=== PATIENT | female | born 1965 | race Caucasian/White ===

== ENCOUNTER 2016-09-29 19:21 | Emergency (ER) | payer OTHER ==
[~2016-09-29] VITALS: Ht 165.1 cm; Wt 87.6 kg
[~2016-09-29 19:21] MED LIST: Ecotrin PO; Norvasc PO; PRILOSEC20 MG PO; REGLAN10 MG PO
[2016-09-29 20:00] LABS: HEMATOCRIT 44.5 % (36.0-46.0); MCH 25.4 PG (29.0-34.0); MCHC 32.1 G/DL (30.0-36.0); MCV 78.9 FL (83-99); MEAN PLAT.VOLUME 9.9 uM^3 (9.5-12.4); PLATELET COUNT 314 K/uL (156-360); RBC DIS.WIDTH-CV 14.9 % (11.8-14.6); RBC DIS.WIDTH-SD 42.5 % (39-53); RED BLOOD COUNT 5.64 M/uL (3.80-5.20); WHITE BLOOD COUNT 14.6 K/uL (4.1-10.2)
[2016-09-29 20:14] LABS: ADD MIUA? YES; BILIRUBIN NEGATIVE; BLOOD MODERATE; COLOR STRAW ((YELLOW)); GLUCOSE (STRIP) NEGATIVE; KETONES NEGATIVE; LEUKOCYTES NEGATIVE; NITRITE NEGATIVE; PROTEIN (STRIP) NEGATIVE; SPECIFIC GRAVITY 1.005 (1.000-1.030); UROBILINOGEN 0.2 MG/DL (0.2-1.0)
[2016-09-29 20:19] LABS: BACTERIA NONE SEEN /HPF; EPITHELIAL CELLS 1+ /HPF; MUCUS NONE SEEN /LPF; RED BLOOD CELLS 0-5 /HPF (0-5); UCUL ADDED? NO; WHITE BLOOD CELLS 0-5 /HPF (0-5)
[2016-09-29 20:35] LABS: CHLORIDE 104 mEq/L (99-109); POTASSIUM 3.3 mEq/L (3.7-5.4); SODIUM 140 mEq/L (136-147)
[2016-09-29 20:37] LABS: GLUCOSE 148 mg/dL (70-99)
[2016-09-29 20:41] LABS: ALKALINE PHOSPHATASE 90 IU/L (3-129); GFR ESTIMATE (CALCULATED) > 59 mL/min/
[2016-09-29 20:42] LABS: UREA NITROGEN (BUN) 11 mg/dL (9-23)
[2016-09-29 20:44] LABS: LIPASE 13 U/L (1.0-51.0)
[2016-09-29 20:45] LABS: EOSINOPHIL (%) 0.5 % (0-5); EOSINOPHIL COUNT 0.1 K/uL (0-0.3); IMMATURE GRANULOCYTE (%) 0.5 % (0.0-0.7); IMMATURE GRANULOCYTE COUNT 0.1 K/uL; INSTRUMENT ABS NEUTROPHIL CT 10.7 K/uL; LYMPHOCYTE COUNT 2.7 K/uL (1.0-2.8); MONOCYTE (%) 7.7 % (3-12); MONOCYTE COUNT 1.1 K/uL (0-0.8); NEUTROPHIL (%) 72.9 % (45-76); NEUTROPHIL COUNT 10.7 K/uL (1.8-6.4)
[2016-09-29 20:50] LABS: QUANTITATIVE HCG < 4.0 MIU/ML
[2016-09-29 21:05] LABS: ANION GAP 11 MEQ/L (2-14)
[2016-09-29 21:06] LABS: TOTAL BILIRUBIN 0.6 mg/dL (0.0-1.0)
[2016-09-29] MEDS ORDERED: CIPRO500 MG PO (22:46)
[2016-09-29] MEDS ORDERED: ULTRACET1 TABLET PO (22:46)
[2016-09-29] MEDS ORDERED: FLAGYL500 MG PO (22:46)
[2016-09-29] MEDS ORDERED: ZOFRAN ODT4 MG PO (22:46)
[2016-09-29 22:54] VITALS: BP 129/69
== END 2016-09-29 22:55 | disposition home or self-care (01) ==
LOC: EME 19:21
DX: K57.32 Diverticulitis of large intestine without perforation or abscess without bleeding (principal); N20.0 Calculus of kidney; I10 Essential (primary) hypertension; Z87.442 Personal history of urinary calculi
CPT/HCPCS: 74177; 80053; 81003; 83605; 83690; 84702; 85025; 85027; 99281; 99285; J1885; J3010; J7030